=== PATIENT | female | born 1950 | race Caucasian/White ===

== ENCOUNTER 2017-09-01 08:32 | Emergency (ER) | payer MEDICARE, OTHER ==
[2017-09-01] MEDS ORDERED: DEXAMETHASONE SOD PHOS INJ 10 MG/1 ML VIAL IM ONE (08:41)
[2017-09-01] MEDS ORDERED: DIPHENHYDRAMINE HCL 50 MG/ML VIAL IM ONE (08:41)
[2017-09-01] MEDS ORDERED: FAMOTIDINE 20 MG TABLET PO ONE (08:42)
--- NOTE | 2017-09-01 08:59 | ER Document Report ---
ED General - General Chief Complaint: Allergic Reaction Stated Complaint: POSSIBLE ALLERGIC REACTION Time Seen by Provider: 09/01/17 08:37 Mode of Arrival: Ambulatory Information source: Patient Notes: 67-year-old female presents with complaints of allergic reaction. Patient notes she ate food 14 hours ago and believes she is having allergic reaction now. Patient admits to difficulty swallowing denies any difficulty breathing Patient denies any hives TRAVEL OUTSIDE OF THE [place] IN LAST 30 DAYS: No - HPI Onset: Yesterday Onset/Duration: Persistent Quality of pain: No pain Severity: Mild Pain Level: Denies Associated symptoms: Other Exacerbated by: Food Relieved by: Denies Similar symptoms previously: Yes - Previous allergic reaction Recently seen / treated by doctor: No - Related Data Allergies/Adverse Reactions: No Known Allergies Allergy (Unverified 04/06/12 10:38) Past Medical History - Social History Smoking Status: Never Smoker Cigarette use (# per day): No Chew tobacco use (# tins/day): No Smoking Education Provided: No Family History: Reviewed & Not Pertinent GI Medical History: Reports: Hx Gastroesophageal Reflux Disease Past Surgical History: Reports: Hx Tonsillectomy Review of Systems - Review of Systems Notes: REVIEW OF SYSTEMS: CONSTITUTIONAL : Denies fever, chills, or sweats. Denies recent illness. EENT: Denies eye, ear, throat, or mouth pain or symptoms. Denies nasal or sinus congestion or discharge. Denies throat, tongue, or mouth swelling or difficulty swallowing. CARDIOVASCULAR: Denies chest pain. Denies palpitations or racing or irregular heart beat. Denies ankle edema. RESPIRATORY: Denies cough, cold, or chest congestion. Denies shortness of breath, difficulty breathing, or wheezing. GASTROINTESTINAL: Admits to difficulty swallowing GENITOURINARY: Denies difficulty urinating, painful urination, burning, frequency, blood in urine, or discharge. FEMALE GENITOURINARY: Denies vaginal bleeding, heavy or abnormal periods, irregular periods. Denies vaginal discharge or odor. MUSCULOSKELETAL: Denies back or neck pain or stiffness. Denies joint pain or swelling. SKIN: Denies rash, lesions or sores. HEMATOLOGIC : Denies easy bruising or bleeding. LYMPHATIC: Denies swollen, enlarged glands. NEUROLOGICAL: Denies confusion or altered mental status. Denies passing out or loss of consciousness. Denies dizziness or lightheadedness. Denies headache. Denies weakness or paralysis or loss of use of either side. Denies problems with gait or speech. Denies sensory loss, numbness, or tingling. Denies seizures. PSYCHIATRIC: Denies anxiety or stress. Denies depression, suicidal ideation, or homicidal ideation. ALL OTHER SYSTEMS REVIEWED AND NEGATIVE. PHYSICAL EXAMINATION: GENERAL: Well-appearing, well-nourished and in no acute distress. HEAD: Atraumatic, normocephalic. EYES: Pupils equal round and reactive to light, extraocular movements intact, conjunctiva are normal. ENT: Nares patent, oropharynx clear without exudates. Moist mucous membranes. patients tongue is not enlarged she is in no distress NECK: Normal range of motion, supple without lymphadenopathy LUNGS: Breath sounds clear to auscultation bilaterally and equal. No wheezes rales or rhonchi. HEART: Regular rate and rhythm without murmurs ABDOMEN: Soft, nontender, nondistended abdomen. No guarding, no rebound. No masses appreciated. Female : deferred Musculoskeletal: Normal range of motion, no pitting or edema. No cyanosis. NEUROLOGICAL: Cranial nerves grossly intact. Normal speech, normal gait. Normal sensory, motor exams PSYCH: Normal mood, normal affect. SKIN: Warm, Dry, normal turgor, no rashes or lesions noted. Dictation was performed using [employer] voice recognition software Physical Exam - Vital signs Vitals: Temp Pulse Resp BP Pulse Ox 98.4 F 82 20 130/81 H 100 09/01/17 08:37 09/01/17 08:37 09/01/17 08:37 09/01/17 08:37 09/01/17 08:37 Course - Re-evaluation Re-evalutation: 09/01/17 08:58 There is no sign of any allergic reaction, patient vital signs are completely normal she is on the monitor and satting 100% on room air, she is speaking with no difficulty and then per nurse states that she cannot swallow and makes herself spit up. Patient was holding her saliva with Apsley no difficulty while she was having a long conversation with me, I explained to the patient that an acute allergic reaction would be more life-threatening and that she looks well at this time but we will continue to monitor in the emergency department, IM Benadryl and IM Solu-Medrol has been given 09/01/17 09:47 Family now notes that this happens quite often, the concern now becomes is if there is an esophageal foreign body versus spasms 09/01/17 12:21 pt notes that there is some improvmeent of swallowing, the inital study was inadequate per radiology 09/01/17 13:48 Mauricio alonzo paged 09/01/17 13:57 Dr. Herrera has accepted the patient for transfer, she is unable to hold down any fluids here therefore I will cancel the imaging and send her to [facility] wants ot take her pov, i explained risks and benefits , he states he can get her there faster, I explained it is always safest for us to take but I will do at his request 09/01/17 13:59 Dr Marie ED doctor has accepted been made aware patient is coming by private vehicle 09/01/17 16:02 - Vital Signs Vital signs: Temp Pulse Resp BP Pulse Ox 97.5 F 102 H 14 128/83 H 97 09/01/17 14:24 09/01/17 14:24 09/01/17 14:24 09/01/17 14:24 09/01/17 14:24 - Diagnostic Test Radiology reviewed: Image reviewed, Reports reviewed - obstruction Discharge - Discharge Clinical Impression: Esophageal foreign body Qualifiers: Encounter type: initial encounter Qualified Code(s): T18.108A - Unspecified foreign body in esophagus causing other injury, initial encounter Condition: Stable Disposition: [facility] Additional Instructions: Please go directly to the emergency department, the ED physician and GI physician are aware of your complaints and are awaiting your arrival
[2017-09-01] MEDS ORDERED: GLUCAGON,HUMAN RECOMB 1 MG INJ SUBCUT ONE (09:40)
[2017-09-01] MEDS ORDERED: LORAZEPAM INJ 2 MG/1 ML VIAL IM ONE (10:30)
[2017-09-01 14:25] VITALS: BP 128/83
--- NOTE | 2017-09-02 08:30 | RADIOLOGY REPORT (SQ) ---
EXAM DESCRIPTION: BARIUM SWALLOW ESOPHAGUS COMPLETED DATE/TIME: 09/01/2017 2:03 pm REASON FOR STUDY: foreign body sensation COMPARISON: None. NUMBER OF VIEWS: One view. TECHNIQUE: Lateral radiographic image of the soft tissues of the neck. Image obtained with oral adm inistration of water-soluble contrast to evaluate for possible obstruction. LIMITATIONS: None. FINDINGS: EPIGLOTTIS: Normal. Contour normal. Aryepiglottic folds normal. PREVERTEBRAL SOFT TISSUES: Normal. No soft tissue swelling. SUBGLOTTIC AREA: Normal. No narrowing. RETROPHARYNGEAL SPACE: Normal. No soft tissue masses. BONES: Degenerative changes. Anterolisthesis of C 4 on C5. LUNG APICES: Normal. OTHER: Limited contrast opacification of the esophagus. There is a probable filling defect at the [place] of C7 although imaging is limited. IMPRESSION: PROBABLE IMPACTED OBJECT IN THE ESOPHAGUS AT THE LEVEL OF C7. TECHNICAL DOCUMENTATION: JOB ID: [id number] [employer]- All Rights Reserved
== END 2017-09-01 14:32 | disposition short-term general hospital (02) ==
LOC: ER 08:32
DX: T18.108A Unspecified foreign body in esophagus causing other injury, initial encounter (principal); X58.XXXA Exposure to other specified factors, initial encounter; Z87.19 Personal history of other diseases of the digestive system
CPT/HCPCS: 99284; 96372; 74220; J1200; J1610; J2060; J1100

== ENCOUNTER 2020-01-28 09:39 | Emergency (ER) | payer MEDICARE, OTHER ==
[2020-01-28] MEDS ORDERED: NORMAL SALINE 1000 ML 1,000 ML IV PRN (09:52)
--- NOTE | 2020-01-28 09:53 | ER Document Report ---
HPI - HPI Patient complains to provider of: Abnormal lab results Time Seen by Provider: 01/28/20 09:51 Onset: Other - Patient was seen at a local clinic for UTI 3 days ago she had some labs drawn apparently when the CBC and chemistry came back they called her today and told her she should come to the emergency room for reevaluation. Associated Symptoms: None. denies: Fever, Nausea, Vomiting - REPRODUCTIVE Reproductive: DENIES: : Past Medical History - General Information source: Patient - Social History Smoking Status: Never Smoker Cigarette use (# per day): No Chew tobacco use (# tins/day): No Smoking Education Provided: No Family History: Reviewed & Not Pertinent - Past Medical History Cardiac Medical History: Reports: Hx Hypercholesterolemia, Other - GERD Renal/ Medical History: Denies: Hx Peritoneal Dialysis GI Medical History: Reports: Hx Gastroesophageal Reflux Disease Past Surgical History: Reports: Hx Tonsillectomy Vertical Provider Document - CONSTITUTIONAL Agree With Documented VS: Yes - INFECTION CONTROL TRAVEL OUTSIDE OF THE [place] IN LAST 30 DAYS: No - HEENT HEENT: Atraumatic, Conjuctival Injection, Normocephalic, PERRLA - NECK Neck: Normal Inspection - RESPIRATORY Respiratory: Breath Sounds Normal - CARDIOVASCULAR Cardiovascular: Regular Rate, Regular Rhythm - GI/ABDOMEN Gastrointestinal: Abdomen Soft, Abdomen Non-Tender Course - Re-evaluation Re-evalutation: 01/28/20 11:03 Patient has no nausea no vomiting no abdominal discomfort no pain at all she was asked to come to the emergency room because she had some abnormal lab results she did not fact have an abnormal BUN and creatinine on a repeat which was 2.34 and 73 respectively. She also had a slight bump in her liver enzymes she does not fact have ancillary services manager locally she will be referred to Dr. Pichardo of [facility] gastroenterology as well as Dr. Silverio of nephrology for follow-up to make sure that she has follow-up for these elements. She should follow-up with her PMD for any other routine care. Patient has recently been diagnosed with a UTI she is on Cipro she is feeling better she has only been on antibiotics for 32 hours and does have some improvement at this point in time. Patient was advised to return to the emergency room immediately for absolutely any change worsening. - Vital Signs Vital signs: Temp Pulse Resp BP Pulse Ox 98.1 F 102 H 18 138/60 H 100 01/28/20 09:46 01/28/20 09:46 01/28/20 09:46 01/28/20 09:46 01/28/20 09:46 - Laboratory Result Diagrams: 01/28/20 10:07 01/28/20 10:07 Discharge - Discharge Clinical Impression: Elevated liver enzymes Urinary tract infection Qualifiers: Urinary tract infection type: site unspecified Hematuria presence: without hematuria Qualified Code(s): N39.0 - Urinary tract infection, site not specified Renal injury Qualifiers: Encounter type: initial encounter Laterality: unspecified laterality Qualified Code(s): S37.009A - Unspecified injury of unspecified kidney, initial encounter Condition: Fair Disposition: HOME, SELF-CARE Additional Instructions: Patient should follow-up with Dr. Pichardo or her private ancillary services manager for elevated liver enzymes and follow-up until complete resolution. Patient also follow-up with Dr. Silverio from nephrology due to the acute renal injury follow-up until resolution patient is currently taking antibiotics for UTI Return to the emergency room for any change or worsening of symptoms including but not limited to nausea vomiting diarrhea abdominal discomfort Referrals: NEIL MOORE PA-C [Primary Care Provider] - Follow up as needed ANIKA BOURGEOIS MD [NO LOCAL MD] - Follow up as needed Pavithra SILVERIO MD [ACTIVE STAFF] - Follow up as needed
[2020-01-28 10:21] LABS: ABSOLUTE LYMPHOCYTES (AUTO) 1.1 10^3/uL (0.5-4.7); ABSOLUTE MONOCYTES (AUTO) 0.6 10^3/uL (0.1-1.4); BASOPHILS % (AUTO) 0.2 % (0-2); EOSINOPHILS % (AUTO) 0.4 % (0-6); HEMATOCRIT 38.4 % (36.0-47.0); HEMOGLOBIN 13.1 g/dL (12.0-15.5); LYMPHOCYTES % (AUTO) 8.5 % (13-45); MEAN CORPUSCULAR HEMOGLOBIN 32.4 pg (27.0-33.4); MEAN CORPUSCULAR HGB CONC 34.3 g/dL (32.0-36.0); MEAN CORPUSCULAR VOLUME 95 fl (80-97); MONOCYTES % (AUTO) 4.9 % (3-13); PLATELET COUNT 194 10^3/uL (150-450); RED BLOOD COUNT 4.06 10^6/uL (3.72-5.28); RED CELL DISTRIBUTION WIDTH 14.7 % (11.5-14.0); TOTAL CELLS COUNTED % (AUTO) 100 %; WHITE BLOOD COUNT 12.7 10^3/uL (4.0-10.5)
[2020-01-28 10:38] LABS: AMORPHOUS SEDIMENT,URINE TRACE /HPF; APPEARANCE,URINE SLIGHTLY-CLOUDY; BILIRUBIN,URINE NEGATIVE (NEGATIVE); COLOR,URINE DARK YELLOW; GLUCOSE, URINE NEGATIVE (NEGATIVE); KETONES,URINE NEGATIVE (NEGATIVE); LEUKOCYTE ESTERASE,URINE NEGATIVE (NEGATIVE); NITRITE,URINE NEGATIVE (NEGATIVE); PROTEIN,URINE NEGATIVE (NEGATIVE); URINE SPECIFIC GRAVITY 1.012
[2020-01-28 10:44] LABS: ALBUMIN 2.9 g/dL (3.5-5.0); ALKALINE PHOSPHATASE 368 U/L (38-126); ANION GAP 12 (5-19); ASPARTATE AMINO TRANSFERASE 198 U/L (14-36); BILIRUBIN,DIRECT 5.8 mg/dL (0.0-0.4); BILIRUBIN,TOTAL 6.8 mg/dL (0.2-1.3); BLOOD UREA NITROGEN 85 mg/dL (7-20); CALCIUM 9.1 mg/dL (8.4-10.2); CARBON DIOXIDE 17 mmol/L (22-30); CHLORIDE 104 mmol/L (98-107); GLUCOSE 111 mg/dL (75-110); POTASSIUM 3.8 mmol/L (3.6-5.0); TOTAL PROTEIN 5.9 g/dL (6.3-8.2)
[2020-01-28 11:41] VITALS: BP 110/68
== END 2020-01-28 11:30 | disposition home or self-care (01) ==
LOC: ER 09:39
DX: S37.009A Unspecified injury of unspecified kidney, initial encounter (principal); N39.0 Urinary tract infection, site not specified; R74.8 Abnormal levels of other serum enzymes; R79.89 Other specified abnormal findings of blood chemistry; X58.XXXA Exposure to other specified factors, initial encounter; E78.00 Pure hypercholesterolemia, unspecified
CPT/HCPCS: 99283; 96360; 36415; 85025; 80053; 81001; J7030

== ENCOUNTER → 2020-04-12 | Outpatient (CLI) | payer MEDICARE ==
--- NOTE | 2020-04-12 08:36 | WOMENS IMAGING REPORT ---
EXAM DESCRIPTION: U/S ABDOMEN LIMITED IMAGES COMPLETED DATE/TIME: 04/12/2020 8:05 am REASON FOR STUDY: R94.5 ABNORMAL RESULTS OF LIVER FUNCTION STUDIES R94.5 ABNORMAL RESULTS OF LIVER FUNCTION STUDIES COMPARISON: 11/06/2011 TECHNIQUE: Dynamic and static grayscale images acquired of the abdomen and recorded on PACS. Mellyo nal selected color Doppler and spectral images recorded. LIMITATIONS: None. FINDINGS: PANCREAS: No masses. Visualized pancreatic duct normal caliber. LIVER: Fatty liver. The liver measures 14.1 cm in length, normal size. LIVER VASCULATURE: Normal directional flow of the main portal vein and hepatic veins. GALLBLADDER: The gallbladder is dilated and measures 12.2 cm in length. No large stones. The gallb ladder wall measures 2.8 mm, normal wall thickness. No pericholecystic fluid. ULTRASOUND-DETECTED MARTINEZ'S SIGN: Negative. INTRAHEPATIC DUCTS AND COMMON DUCT: CBD measures 3.2 mm in diameter, normal. The intrahepatic ducts normal caliber. No filling defects. INFERIOR VENA CAVA: Normal flow. AORTA: No aneurysm. RIGHT KIDNEY: The right kidney measures 8.9 x 4.4 x 4.2 cm and is atrophic in appearance. Diffuse i ncreased echogenicity of the kidney may be on the basis of underlying medical renal disease. Cortica l thinning. No evidence of hydronephrosis. No calcifications. PERITONEAL AND RIGHT PLEURAL SPACE: No ascites or effusions. OTHER: No other significant findings. IMPRESSION: 1. Fatty liver. 2. The gallbladder is dilated. No evidence of large gallstones. No evidence of biliary obstruction . Correlation suggested. 3. Atrophic appearing right kidney. Diffuse increased echogenicity of the kidney may be on the basi s of underlying medical renal disease(This finding was identified on the prior study dated 11/06/2011) . TECHNICAL DOCUMENTATION: JOB ID: [id number] 2010 [employer]- All Rights Reserved Reading location - IP/workstation name: [email or web address]
== END ==
LOC: WI 07:28
PROVIDERS: ATTEND Internal Medicine Gastroenterology
DX: R94.5 Abnormal results of liver function studies (principal)
CPT/HCPCS: 76705